=== PATIENT | female | born 1965 | race Caucasian/White ===

== ENCOUNTER 2019-08-13 10:00 | Emergency (ER) | payer OTHER, SELFPAY ==
--- NOTE | 2019-08-13 10:12 | ED.URI ---
HPI - URI/Sore Throat General Chief Complaint: Upper Respiratory Infection Stated Complaint: sore throat Time Seen by Provider: 08/13/19 10:15 Source: patient and RN notes reviewed Mode of arrival: ambulatory Limitations: no limitations History of Present Illness HPI Narrative: 53-year-old female presents with concern for sore throat that started today. Reports on Saturday she began having runny nose. Reports yesterday she had slight cough, right ear pain and continued to have nasal drainage. She denies fever, body aches, chills, sweats, headache, nausea, vomiting, diarrhea. Reports mild nasal congestion. Denies taking any medications for her symptoms MD elicited complaint: sore throat Related Data Allergies Allergy/AdvReac Type Severity Reaction Status Date / Time Sulfa (Sulfonamide AdvReac Unknown GETS YEAST Unverified 12/28/14 08:19 Antibiotics) INFECTION Review of Systems Review of Systems: Narrative: CONSTITUTIONAL: Denies malaise, chills, sweats, or fever. EYES: Denies visual changes, redness, or discharge. ENT: Reports rhinorrhea, congestion, sore throat, ear pain CARDIOVASCULAR: Denies chest pain, palpitations, or edema. RESPIRATORY: Reports occasional cough. Denies dyspnea. GASTROINTESTINAL: Denies abdominal pain, nausea, vomiting, diarrhea SKIN: Denies rash or itching. MUSCULOSKELETAL: Denies myalgia. NEUROLOGIC: Denies headache. All systems reviewed & are unremarkable except as noted in HPI and below PMFSH Comments At time of signature, agree with nursing past medical, surgical, social and family history. There is no relevant family history pertinent to the presenting complaint Exam Narrative: Exam Narrative: GENERAL: Well-appearing, well-nourished, and in no acute distress. HEAD: Normocephalic EYES: PERRLA, conjunctivae clear ENT: Nares clear, turbinates erythematous, clear discharge. Mucous membranes moist. TM pearly henao with dull light reflex bilaterally; no tragal tenderness. Oropharynx mild erythematous without lesions. Tonsils not enlarged and without exudate, no drooling, no hoarseness, no trismus, uvula midline. NECK: Supple. No lymphadenopathy CHEST: Clear to auscultation, breath sounds equal. No wheezing, rhonchi, rales, or stridor. No respiratory distress, speaks in full sentences. HEART: Regular rate and rhythm. No murmur heard. SKIN: Warm, dry, no rash. NEURO: Alert and oriented x3. PSYCH: Normal mood and affect Course Course Emergency Course: Patient is aware of diagnosis, understands and agrees to treatment plan. Anticipatory guidance given. Patient agrees to follow-up as directed and is aware of reasons to seek care at the emergency department. Portions of this record may have been created with voice recognition software Vital Signs Vital signs: Vital Signs Temperature 99.1 F 08/13/19 10:13 Pulse Rate 82 08/13/19 10:13 Blood Pressure 134/80 08/13/19 10:13 Pulse Oximetry 100 08/13/19 10:13 Temperature 99.1 F 08/13/19 10:13 Pulse Rate 82 08/13/19 10:13 Blood Pressure 134/80 08/13/19 10:13 Pulse Oximetry 100 08/13/19 10:13 Reviewed. Patient has been instructed to follow up with her primary care provider within the next week regarding her elevated blood pressure today. MDM - URI/Sore Throat MDM Narrative Medical decision making narrative: Differential diagnosis considered: Strep pharyngitis, allergic rhinitis, upper respiratory tract infection, sinusitis, rhinosinusitis, nasopharyngitis. viral pharyngitis, otitis media, otitis externa, pneumonia, bronchitis, viral cough syndrome, viral syndrome, and influenza. Exam findings show no acute concerns or changes; patient is non-toxic appearing and is in no distress. Patient is appropriate for outpatient treatment and follow-up. Lab Data Labs: Strep Screen Presumptive Negative *(Reference Range: Negative)* Critical Care Time Critical Care Time Critical Care Time: No Discharge Greg
[2019-08-13 10:13] VITALS: BP 134/80; PULSE 82; RESP 16; TEMP 37.3; O2SAT 100
== END 2019-08-13 10:38 | disposition home or self-care (01) ==
PROVIDERS: Emergency Provider Nurse Practitioner
DX: J06.9 Acute upper respiratory infection, unspecified (principal)
CPT/HCPCS: 87081; 87880; 99213; G0463

== ENCOUNTER 2020-07-24 11:32 | Emergency (ER) | payer OTHER, SELFPAY ==
[2020-07-24 11:50] VITALS: BP 110/80; PULSE 80; RESP 18; TEMP 37.1; O2SAT 97
--- NOTE | 2020-07-24 12:11 | ED.URI ---
HPI - URI/Sore Throat General Chief Complaint: Upper Respiratory Infection Stated Complaint: Sore Throat/Drainage Time Seen by Provider: 07/24/20 12:11 Source: patient Mode of arrival: ambulatory Limitations: no limitations History of Present Illness HPI Narrative: Tessa Kennedy is a 54 yo female with no PMH who comes [facility] with sore throat, pressure in her sinus maxillary sinus, the 2-3 over 10; has sore throat on 07 July and when he got tested which was negative but her class in school was totally quarantine until the she stated she was feeling well during that quarantine time has been back to school for 2 days and now has this sore throat again. Vaccination scheduled for today which now has been moved further out Related Data Allergies Allergy/AdvReac Type Severity Reaction Status Date / Time Sulfa (Sulfonamide AdvReac Unknown GETS YEAST Verified 07/24/20 11:59 Antibiotics) INFECTION Review of Systems Review of Systems: Narrative: CONSTITUTIONAL: Denies fever, chills, sweats. EYES: Denies visual changes, redness, discharge. ENT: has rhinorrhea,has congestion, has sore throat, otalgia. Sinus pressure CARDIOVASCULAR: Denies chest pain, palpitations, edema. RESPIRATORY: Denies dyspnea, wheezing, cough GASTROINTESTINAL: Denies abdominal pain, nausea, vomiting, diarrhea. GENITOURINARY: Denies dysuria, hematuria, abnormal discharge SKIN: Denies rash or itching. NEUROLOGIC: Denies numbness, or focal weakness. PSYCHIATRIC: Denies anxiety or depression. PMFSH Past Medical History Medical History (Updated 07/24/20 @ 12:20 by Adeola Yousif CNP) No acute medical problems Family History Family History (Updated 07/24/20 @ 12:16 by Adeola Yousif CNP) Father Hypertension Mother Diabetes mellitus Social History Social History (Updated 07/24/20 @ 12:16 by Adeola Yousif CNP) Smoking status: Never smoker Alcohol intake: current Comments At time of signature, I agree with nursing past medical, surgical, social and family history. There is no relevant family history pertinent to the presenting complaint. Exam Narrative: Exam Narrative: GENERAL: This is a well-nourished, well-developed patient, in mild distress. HEAD: normocephalic, atraumatic. EYES: Sclera clear/white. Vision is grossly intact. EARS: External ears normal Hearing grossly intact. NOSE: External nose normal with nasal discharge, nares without redness, n mild rhinorrhea. THROAT: Mucous membranes moist, posterior pharynx erythema with no exudate NECK: Neck supple, non-tender CARDIOVASCULAR: Regular rate and rhythm without murmurs, gallops, or rubs. RESPIRATORY: Clear to auscultation. Breath sounds equal bilaterally. No wheezes, rales, or rhonchi. GASTROINTESTINAL: Abdomen soft, SKIN: warm, intact with no suspicious lesions or rash, good texture and turgor. NEURO: awake, alert, and oriented to person, place and time. There were no obvious focal neurologic abnormalities. Steady gait EXTREMITIES: Normal range of motion. BACK: Nontender without deformity Course Course Emergency Course: Patient here for upper respiratory symptoms including sore throat and rhinorrhea no cough started again yesterday Strep test negative Covid PCR sent Patient is quarantine until results from PCR obtained she has canceled her Covid vaccine for today Vital Signs Vital signs: Vital Signs Temperature 98.8 F 07/24/20 11:50 Pulse Rate 80 07/24/20 11:50 Respiratory Rate 18 07/24/20 11:50 Blood Pressure 110/80 07/24/20 11:50 Pulse Oximetry 97 07/24/20 11:50 Temperature 98.8 F 07/24/20 11:50 Pulse Rate 80 07/24/20 11:50 Respiratory Rate 18 07/24/20 11:50 Blood Pressure 110/80 07/24/20 11:50 Pulse Oximetry 97 07/24/20 11:50 MDM - URI/Sore Throat Differential Diagnosis Differential diagnosis: Likely upper respiratory infection, viral infection, pharyngitis and other Lab Data Labs: Stre
[2020-07-25 18:21] LABS: SARS-CoV-2 RNA PCR Negative
== END 2020-07-24 12:25 | disposition home or self-care (01) ==
PROVIDERS: Emergency Provider Nurse Practitioner
DX: J06.9 Acute upper respiratory infection, unspecified (principal); Z20.822 Contact with and (suspected) exposure to COVID-19
CPT/HCPCS: 87081; 87880; 99213; C9803; G0463; U0003; U0005

== ENCOUNTER 2020-11-05 08:05 | Emergency (ER) | payer OTHER, SELFPAY ==
--- NOTE | 2020-11-05 08:15 | ED.URI ---
HPI - URI/Sore Throat General Chief Complaint: Upper Respiratory Infection Stated Complaint: headache,sore throat Time Seen by Provider: 11/05/20 08:55 Source: patient, RN notes reviewed and old records reviewed Mode of arrival: ambulatory Limitations: no limitations History of Present Illness HPI Narrative: 54-year-old female who presents to [facility] with complaints of headache since Saturday across her brow with sore throat starting yesterday. She states that she also has some pressure to her right side of her face today. Patient states she is scheduled for Covid test in [place] later today. Patient states that she has not taken any OTC medication for her symptoms denies any known fever, chills, or sweats. MD elicited complaint: sore throat and other (Headache, right sinus pressure) Pertinent past history: seasonal allergies and other (previous tonsillectomy) Onset (ago): day(s) (4 days) Consistency: progressively worsening Severity: moderate Pain scale (0-10): 5 Description of mucous: clear Able to tolerate fluids by mouth: Yes Exacerbating factors: swallowing Relieving factors: nothing Associated symptoms: headache and sore throat Treatments prior to arrival: acetaminophen Related Data Allergies Allergy/AdvReac Type Severity Reaction Status Date / Time Sulfa (Sulfonamide AdvReac Unknown GETS YEAST Verified 07/24/20 11:59 Antibiotics) INFECTION Review of Systems Review of Systems: Narrative: CONSTITUTIONAL: Denies fever, chills, or sweats. EYES: Denies visual changes, redness, or discharge. ENT: Clear rhinorrhea,no congestion, positive sore throat, no otalgia. CARDIOVASCULAR: Denies chest pain, palpitations, or edema. RESPIRATORY: Denies cough or dyspnea. GASTROINTESTINAL: Denies abdominal pain, nausea, vomiting, or diarrhea. GENITOURINARY: Denies dysuria or hematuria. SKIN: Denies rash or itching. MUSCULOSKELETAL: Denies back pain, joint pain, or myalgia. NEUROLOGIC: Positive headache,no numbness, or weakness. PSYCHIATRIC: Denies anxiety or depression. All systems reviewed & are unremarkable except as noted in HPI and below PMFSH Past Medical History Medical History (Updated 11/05/20 @ 09:51 by Sheila Bartlett NP) Overactive bladder Surgical History Surgical History (Updated 11/05/20 @ 09:50 by Sheila Bartlett NP) History of ankle surgery Hx of tonsillectomy S/P removal of right ovary Family History Family History Father Hypertension Mother Diabetes mellitus Social History Social History (Updated 11/05/20 @ 09:47 by Sheila Bartlett NP) Smoking status: Never smoker Alcohol intake: current Alcohol use details: social Substance use: never Living arrangements: with family Gender identity (if verbalized by the patient): Female Comments At time of signature, agree with nursing past medical, surgical, social and family history. There is no relevant family history pertinent to the presenting complaint Exam Narrative: Exam Narrative: GENERAL: Well-appearing, well-nourished, and in no acute distress. HEAD: Normocephalic, atraumatic. EYES: PERRLA and EOMI. ENT: Nares red, clear nasal rhinorrhea no epistaxis. Mucous membranes moist. TM's normal with good light reflex, throat red with no lesions or exudates, no tonsils present, verbalizes sore throat increases with swallowing. NECK: Supple.no lymphadenopathy CHEST: Clear to auscultation. No respiratory distress. SAO2 100% on room air HEART: Regular rate and rhythm. No murmur heard. Normal peripheral pulses. ABDOMEN: Soft, nontender, nondistended, normal active bowel sounds. EXTREMITIES: Normal range of motion. No edema. SKIN: Warm, dry, no rash. NEURO: No focal deficits. Alert and oriented x3. Course Vital Signs Vital signs: Vital Signs Temperature 37.1 C 11/05/20 08:16 Pulse Rate 88 11/05/20 08:16 Respiratory Rate 16 11/05/20 08:16 Blood Pressur
[2020-11-05 08:16] VITALS: BP 140/82; PULSE 88; RESP 16; TEMP 37.1; O2SAT 100
== END 2020-11-05 09:14 | disposition home or self-care (01) ==
PROVIDERS: Emergency Provider Registered Nurse
DX: J02.0 Streptococcal pharyngitis (principal); J30.2 Other seasonal allergic rhinitis
CPT/HCPCS: 87880; 99213; G0463

== ENCOUNTER 2022-01-18 17:09 | Emergency (ER) | payer OTHER, SELFPAY ==
--- NOTE | 2022-01-18 17:13 | ED.URI ---
HPI - URI/Sore Throat General Chief Complaint: Upper Respiratory Infection Stated Complaint: sore throat,stuffy nose Time Seen by Provider: 01/18/22 17:22 Source: patient, RN notes reviewed and old records reviewed Mode of arrival: ambulatory Limitations: no limitations History of Present Illness HPI Narrative: 56-year-old female presents to the [facility] with complaints of sore throat and stuffy nose since midnight. Has taken Tylenol for pain, 1 dose. No other tx [employer]. Denies fevers, chest pain, shortness of breath, cough or abdominal pain. Home covid test was negitive this morning. MD elicited complaint: sore throat, rhinorrhea and nasal congestion Related Data Allergies Allergy/AdvReac Type Severity Reaction Status Date / Time Sulfa (Sulfonamide AdvReac Unknown GETS YEAST Verified 01/18/22 17:15 Antibiotics) INFECTION Review of Systems Review of Systems: All systems reviewed & are unremarkable except as noted in HPI and below Constitutional: Constitutional: Reports no additional constitutional complaints, Denies chills and Denies fever(s) Eyes: Eyes: Reports no additional eye complaints ENT: Reports as per HPI, Reports nasal congestion and Reports sore throat Cardiovascular: Cardiovascular: Reports no additional cardiovascular complaints Respiratory: Respiratory: Reports no additional respiratory complaints Gastrointestinal: Gastrointestinal: Reports no additional gastrointestinal complaints Musculoskeletal: Musculoskeletal: Reports no additional musculoskeletal complaints Integumentary/Breasts: Skin/Breast: Reports system reviewed and no additional complaints, except as docu Neurologic: Reports system reviewed and no additional complaints, except as documented Psychiatric: Psychiatric: Reports no additional psychiatric complaints Allergic/Immunologic: Allergic/Immunologic: Reports no additional allergic/immunologic complaints [facility] Past Medical History Medical History Overactive bladder Surgical History Surgical History History of ankle surgery Hx of tonsillectomy S/P removal of right ovary Family History Family History Father Hypertension Mother Diabetes mellitus Social History Social History Smoking status: Never smoker Alcohol intake: current Alcohol use details: social Substance use: never Gender identity (if verbalized by the patient): Female Comments At the time of my signature, I reviewed and agree with the nursing past medical, surgical, social, and family history. There is no relevant family history pertinent to the patient complaint. Exam Const: General: healthy appearing, no acute distress and alert Nutritional Appearance: well nourished Orientation/consciousness: patient oriented x3 Limitations: no limitations HENMT: Head: normal to inspection Ears: external ears normal, TM's normal bilaterally and EAC's normal General nose exam: Normal external nose present and Normal nares present Face and sinus: normal facial exam Mouth: Yes Normal oral and palatal mucosa present, Yes lip normal and Yes moist mucous membranes Throat: posterior oropharynx normal, uvula midline, tonsils absent and no uvular edema Eyes: General: appearance normal, both eyes and all related structures Pupils: Equal, round and reactive pupils present Neck: Neck: normal visual inspection, no lymphadenopathy and no meningeal signs Chest: Chest palpation & inspection: normal inspection of the chest Resp: Effort & Inspection: normal respiratory effort and no use of accessory muscles Auscultation: clear to auscultation bilaterally, no crackles, no rales, no rhonchi and no wheezes Cardio: Rate: regular rate Rhythm: regular rhythm Back/Spine/Pelvis: Cervical Spine: normal
[2022-01-18 17:17] VITALS: BP 133/90; PULSE 98; RESP 16; TEMP 37.1; O2SAT 100
== END 2022-01-18 17:38 | disposition home or self-care (01) ==
PROVIDERS: Emergency Provider Nurse Practitioner
DX: J06.9 Acute upper respiratory infection, unspecified (principal)
CPT/HCPCS: 87081; 87880; 99213; G0463

== ENCOUNTER 2022-12-01 08:31 | Outpatient (CLI) | payer OTHER, SELFPAY ==
--- NOTE | ~2022-12-01 | MM_ITS ---
EXAMINATION: MM screening [facility] BI w [facility]sario HISTORY: Screening mammogram TECHNIQUE: Craniocaudal and mediolateral oblique 3-D tomosynthesis images were obtained and synthetic 2-D images were generated. CAD analysis was submitted and interpreted. COMPARISON: 12/05/2018, 11/15/2017, 10/23/2016 BREAST PARENCHYMAL COMPOSITION:There are scattered areas of fibroglandular density. FINDINGS: No suspicious mass, calcification, or architectural distortion are identified in either flavia ast to suggest malignancy. There has been no suspicious interval change. IMPRESSION: No mammographic evidence of malignancy. Recommend routine screening mammography in one year. BI-RADS Category 1: Negative Reviewed, dictated and finalized at location M.
== END 2022-12-01 08:32 | disposition home or self-care (01) ==
LOC: ANHIMG 08:36
PROVIDERS: PCP Nurse Practitioner; Visit Provider Nurse Practitioner
DX: Z12.31 Encounter for screening mammogram for malignant neoplasm of breast (principal)
CPT/HCPCS: 77063; 77067

== ENCOUNTER 2024-07-06 16:11 | Emergency (ER) | payer OTHER, SELFPAY ==
[2024-07-06 16:57] VITALS: BP 132/82; PULSE 88; RESP 16; TEMP 36.6; O2SAT 99
--- NOTE | 2024-07-06 18:00 | ED_ITS ---
HPI - Ear Problem General Chief complaint: Ear Stated complaint: Ear Pain Time Seen by Provider: 07/06/24 18:00 Source: patient, RN notes reviewed and old records reviewed Mode of arrival: ambulatory Limitations: no limitations History of Present Illness HPI Narrative: 58 year old female who presents to [facility] with complaints of right ear pain and muffled hearing starting today. Patient reports that she had Influenza last week and she continues to have some sinus congestion and drainage. Patient reports that when sh blows her nose her left ear will clear but right ear remains clogged. Patient denies any present fever, sore throat headache or body aches at present MD Complaint: ear pain and other (muffled hearing right ear) Location: right ear Duration: constant Discharge from ear: Reports no Related Data Allergies Allergy/AdvReac Type Severity Reaction Status Date / Time Sulfa (Sulfonamide AdvReac Unknown GETS YEAST Verified 07/06/24 17:01 Antibiotics) INFECTION Review of Systems Review of Systems: CONSTITUTIONAL: Denies malaise, chills, sweats, or fever. EYES: Denies visual changes, redness, or discharge. ENT: Reports rhinorrhea, congestion, sinus pain,positive for right otalgia and no sore throat. CARDIOVASCULAR: Denies chest pain, palpitations, or edema. RESPIRATORY: Reports no cough.? Denies dyspnea. GASTROINTESTINAL: Denies abdominal pain, nausea, vomiting, diarrhea SKIN: Denies rash or itching. MUSCULOSKELETAL: Denies myalgia. NEUROLOGIC: Denies headache. All systems reviewed & are unremarkable except as noted in HPI and below PMFSH Past Medical History Medical History Overactive bladder Surgical History Surgical History History of ankle surgery S/P removal of right ovary Hx of tonsillectomy Family History Family History Father Hypertension Mother Diabetes mellitus Social History Social History Smoking status: Never smoker Alcohol intake: current Alcohol use details: social Substance use: never Living arrangements: with family Gender identity (if verbalized by the patient): Female Comments At time of signature, agree with nursing past medical, surgical, social and family history. There is no relevant family history pertinent to the presenting complaint Exam Narrative: GENERAL: Well-appearing, well-nourished, and in no acute distress. HEAD: Normocephalic EYES: PERRLA, conjunctivae clear ENT: Nares clear, turbinates edematous and erythematous, clear discharge. Mucous membranes moist. TM pearly henao with dull light reflex bilaterally; no tragal tenderness. Oropharynx erythematous without lesions. Tonsils not present and throat without exudate, no drooling, no hoarseness, no trismus, uvula midline.Clear nasal drainage NECK: Supple. No lymphadenopathy CHEST: Clear to auscultation, breath sounds equal. No wheezing, rhonchi, rales, or stridor. No respiratory distress, speaks in full sentences.no cough notedSAO2 99% on room air HEART: Regular rate and rhythm. No murmur heard. SKIN: Warm, dry, no rash. NEURO: Alert and oriented x3. PSYCH: Normal mood and affect Course Course Emergency Course: Patient is aware of diagnosis, understands and agrees to treatment plan.? Anticipatory guidance given.? Patient agrees to follow-up as directed and is aware of reasons to seek care at the emergency department. Portions of this record may have been created with voice recognition software Level of Care: Express Care Visit Vital Signs Vital signs: Vital Signs Temperature 36.6 C 07/06/24 16:57 Pulse Rate 88 07/06/24 16:57 Respiratory Rate 16 07/06/24 16:57 Blood Pressure 132/82 07/06/24 16:57 Pulse Oximetry 99 07/06/24 16:57 Oxygen Delivery Room Air 07/06/24 16:57 Temperature 36.6 C 07/06/24 16:57 Pulse Rate 88 07/06/24 16:57 Respiratory Rate 16 07/06/24 16:57 Blood Pressure 132/82 07/06/24 16:57 Pulse Oximetry 99 07/06/24 16:57 Oxygen Delivery Room Air 07/06/24 16:57 Reviewed Medical Decision Making Differential Diagnosis Differential Diagnosis: URI, sinus congestion otitis media, influenza viral infection Medical Records Medical records reviewed: Yes I reviewed the external patient's medical records. Vital Signs Vital Signs: Vital Signs Temperature 36.6 C 07/06/24 16:57 Pulse Rate 88 07/06/24 16:57 Respiratory Rate 16 07/06/24 16:57 Blood Pressure 132/82 07/06/24 16:57 Pulse Oximetry 99 07/06/24 16:57 Oxygen Delivery Room Air 07/06/24 16:57 Temperature 36.6 C 07/06/24 16:57 Pulse Rate 88 07/06/24 16:57 Respiratory Rate 16 07/06/24 16:57 Blood Pressure 132/82 07/06/24 16:57 Pulse Oximetry 99 07/06/24 16:57 Oxygen Delivery Room Air 07/06/24 16:57 Critical Care Time Critical Care Time Critical Care Time: No Discharge Plan Discharge Clinical Impression: Otitis media Qualifiers: Otitis media type: serous Chronicity: acute Laterality: right Recurrence: non- recurrent Qualified Code(s): H65.01 - Acute serous otitis media, right ear Patient Disposition: Home, Self-Care Condition: Stable Instructions: Antibiotic Form, Ear Infection (GEN) Additional Instructions: Increase fluids especially juices and water [id number] cough and cold medicine of your choice for your symptoms Prescription cough medicine as directed--caution drowsiness and no driving or alcohol Zyrtec Claritin or Lyssa daily may include plain Sudafed once in a.m. heat to the face 20-30 minutes 4-6 times a day for pain Salt water gargles, throat lozenges or throat sprays as desired Antibiotic as directed--finished the medication If your symptoms persist, change or worsen significantly before you can contact your personal physician then please, without delay, go to the emergency department for further evaluation. Follow-up with PCP in 7-10 days or sooner if needed Follow up with PCP soon in regards to your blood pressure which is elevated above threshold for referral. Blood pressure above 120/80 may indicate pre- hypertension. 132/82 Patient Language: Lao Prescriptions: New amoxicillin 875 mg tablet 875 mg PO Q12H Qty: 20 0RF Rx Instructions: take all doses of oral antibiotics Follow-up/Referrals: Kenneth,MELANIE Farooq [Primary Care Provider] - Time of Disposition: 18:14 Quality [place] Coma Scale Eyes: Open Verbal: Oriented and Alert Motor: Follows Commands Danial Coma Total Score: 15
== END 2024-07-06 18:15 | disposition home or self-care (01) ==
PROVIDERS: Emergency Provider Registered Nurse; PCP Nurse Practitioner
DX: H65.01 Acute serous otitis media, right ear (principal)
CPT/HCPCS: 99213; G0463

== ENCOUNTER 2024-09-14 12:48 | Emergency (ER) | payer OTHER, SELFPAY ==
--- NOTE | ~2024-09-14 | CT_ITS ---
EXAMINATION: CTA chest PE protocol DATE: 09/14/2024 16:48 INDICATION: chest pain, elevated d dimer TECHNIQUE: Computed tomography angiography (CTA) of the chest was performed with 100 mL Omnipaque-350 intravenous contrast timed to evaluate the pulmonary arteries. Coronal maximum intensity projection 3D-reconstructions were created by the technologist. The dose-length product (DLP) was 240.52 mGy-cm. Automated exposure control and iterative reconstruction technique were employed. COMPARISON: X-ray chest, same date. FINDINGS: Lung parenchyma and airways: Linear scar/atelectasis in the bilateral lower lobes. Mild dependent sca r/atelectasis. Granulomas calcifications. Patent airways. Pleura: Unremarkable. Thoracic inlet, axillae and chest wall: Unremarkable. Thoracic aorta: No significant dilation. No dissection. Mediastinum: Normal. Heart and pericardium: Normal. Coronary artery calcifications: Absent. Upper abdomen: No significant finding. Bones: No acute osseous finding. Pulmonary arteries: Study quality: Adequate. No pulmonary emboli detected. IMPRESSION: No CT evidence of acute pulmonary embolus. No acute process detected in the chest. Reviewed, dictated and finalized at location K.
--- NOTE | ~2024-09-14 | XR_ITS ---
XR chest 2V Ordering provider: Selam Sethi MD History: 58 years Female with . CP X YESTERDAY . Comparison: None. FINDINGS: MEDIASTINUM: The cardiac silhouette is not enlarged. LUNGS: No infiltrates, effusions or pneumothorax. Likely bronchovascular markings in the left lung ba se. OTHER: No free air under the diaphragm. Degenerative changes of the spine IMPRESSION: No definite acute cardiopulmonary pathology. Reviewed, dictated and finalized at location A.
--- NOTE | 2024-09-14 12:50 | ECG_ITS ---
Test Date: 2024-09-14 12:59:32 Measurements Intervals [place] Rate: 78 P: 62 KS: 144 QRS: 70 QRSD: 81 T: 49 QT: 339 QTc: 386 Interpretive Statements SINUS RHYTHM BASELINE ARTIFACT- I, II, III, AVR, AVL, AVF, V1-V6 NORMAL ECG No previous ECG available for comparison Electronically Signed On 09-14-2024 13:37:20 CDT by Dustin Quintana D.O.
[2024-09-14 12:59] VITALS: BP 152/87; PULSE 84; RESP 16; TEMP 36.7; O2SAT 100
--- NOTE | 2024-09-14 13:05 | ED_ITS ---
HPI - Chest Pain General Chief Complaint: Chest Pain <Apolonia Jones INSTALLATION TECH - Last Filed: 09/14/24 13:07> Stated Complaint: Left chest heaviness since yesterday <Apolonia Jones APRN - Last Filed: 09/14/24 13:07> Time Seen by Provider: 09/14/24 13:00 <Apolonia Jones INSTALLATION TECH - Last Filed: 09/14/24 13:07> Focused HPI: Patient is a 58-year-old female who presents to the intermittent chest pain that started yesterday. She reports her chest feels heavy and she has pressure. Patient denies any palpitations. She reports she has had intermittent shortness of breath. Patient reports her father of a heart attack at age 58 and so she is very nervous right now. She reports when she 1st noticed chest pain yesterday was when she was driving. Patient endorses heavy ice tea consumption. She denies any recent fevers, back pain, abdominal pain, urinary symptoms. GENERAL: Well-appearing, well-nourished, and in no acute distress. HEAD: Normocephalic, atraumatic. CHEST: Clear to auscultation. ?No respiratory distress. HEART: Regular rate and rhythm.? NEURO: ?Alert and oriented x3. Patient screened in triage and initial orders placed.? ?Additional care and disposition to be based upon?diagnostic testing and treatment. <Apolonia Jones, INSTALLATION TECH - Last Filed: 09/14/24 13:07> Related Data Allergies/Adverse Reactions: Allergies Allergy/AdvReac Type Severity Reaction Status Date / Time Sulfa (Sulfonamide AdvReac Unknown GETS YEAST Verified 09/14/24 12:49 Antibiotics) INFECTION <Apolonia Jones, INSTALLATION TECH - Last Filed: 09/14/24 13:07> PMFSH Past Medical History Medical History: Medical History Overactive bladder <Apolonia Jones INSTALLATION TECH - Last Filed: 09/14/24 13:07> Surgical History Surgical History: Surgical History History of ankle surgery S/P removal of right ovary Hx of tonsillectomy <Apolonia Jones, INSTALLATION TECH - Last Filed: 09/14/24 13:07> Family History Family History: Family History Father Hypertension Mother Diabetes mellitus <Apolonia Jones INSTALLATION TECH - Last Filed: 09/14/24 13:07> Social History Social History: Social History Smoking status: Never smoker Alcohol intake: current Alcohol use details: social Substance use: never Living arrangements: with family Gender identity (if verbalized by the patient): Female <Apolonia Jones APRN - Last Filed: 09/14/24 13:07> Course Reevaluation(s) Reevaluation #1: I spoke with patient about her chest pain. It is atypical and she is low heart score. She understands that this will rule out IA but she will still need to follow up with PCP for evaluation rule out her concern for heart disease. She is comfortable with discharge and she was given return precautions. Low risk for aortic dissection. CT did not show any significant finding. <Selam Sethi MD - Last Filed: 09/14/24 18:36> Date: 09/14/24 <Selam Sethi MD - Last Filed: 09/14/24 18:36> Time: 17:09 <Selam Sethi MD - Last Filed: 09/14/24 18:36> Vital Signs Vital signs: Vital Signs Temperature 98.1 F 09/14/24 12:59 Pulse Rate 84 09/14/24 12:59 Respiratory Rate 16 09/14/24 12:59 Blood Pressure 152/87 H 09/14/24 12:59 Pulse Oximetry 100 09/14/24 12:59 Oxygen Delivery Room Air 09/14/24 12:59 Temperature 98.1 F 09/14/24 12:59 Pulse Rate 79 09/14/24 16:10 Respiratory Rate 15 09/14/24 16:10 Blood Pressure 113/83 09/14/24 16:10 Pulse Oximetry 95 09/14/24 16:10 Oxygen Delivery Room Air 09/14/24 12:59 <Apolonia Jones APRN - Last Filed: 09/14/24 13:07> Vital Signs Temperature 98.1 F 09/14/24 12:59 Pulse Rate 84 09/14/24 12:59 Respiratory Rate 16 09/14/24 12:59 Blood Pressure 152/87 H 09/14/24 12:59 Pulse Oximetry 100 09/14/24 12:59 Oxygen Delivery Room Air 09/14/24 12:59 Temperature 98.1 F 09/14/24 12:59 Pulse Rate 79 09/14/24 16:10 Respiratory Rate 15 09/14/24 16:10 Blood Pressure 113/83 09/14/24 16:10 Pulse Oximetry 95 09/14/24 16:10 Oxygen Delivery Room Air 09/14/24 12:59 <Selam Sethi MD - Last Filed: 09/14/24 18:36> MDM - Chest Pain Differential Diagnosis Differential diagnosis: Likely fracture of rib, pneumothorax, atypical chest pain, costochondritis, chest pain and other (PE, pneumonia) <Selam Sethi MD - Last Filed: 09/14/24 18:36> Medical Records Data Attestation: I reviewed the patient's medical records. <Selam Sethi MD - Last Filed: 09/14/24 18:36> Lab Data Attestation: I reviewed the patient's lab results. <Selam Sethi MD - Last Filed: 09/14/24 18:36> Result diagrams: 09/14/24 13:26 09/14/24 13:26 <Apolonia Jones APRN - Last Filed: 09/14/24 13:07> Labs: Lab Results 09/14/24 09/14/24 09/14/24 Range/Units 13:26 13:26 16:27 WBC 7.2 (4.5-10.0) K/mm3 RBC 4.08 L (4.2-5.4) M/mm3 Hgb 12.8 (12.0-15.0) g/dL Hct 39.9 (37.0-47.0) % MCV 97.8 (80-100) fl MCH 31.4 (26-34) pg MCHC 32.1 (32-36) g/dl RDW 13.7 (11.5-14.5) % Plt Count 247 (150-375) k/mm3 MPV 11.7 H (7.4-10.4) fl Immature Gran % (Auto) 0.3 (0-0.5) % Neut % (Auto) 58.8 (45.5-73.1) % Lymph % (Auto) 30.7 (18.3-44.2) % [place] % (Auto) 8.7 H (2.6-8.5) % Eos % (Auto) 1.1 (0-4.4) % Baso % (Auto) 0.4 (0.2-1.2) % Lymph # (Auto) 2.21 (0.9-3.2) K/mm3 [place] # (Auto) 0.6 (0.1-0.6) K/mm3 Eos # (Auto) 0.1 (0-0.3) K/mm3 Baso # (Auto) 0.0 (0.0-0.1) K/mm3 Abs Immat Gran (auto) 0.02 (0.00-0.031) K/mm3 Absolute Neuts (auto) 4.2 (1.3-6.7) K/mm3 Absolute Nucleated RBC 0.000 (0.0-0.012) K/mm3 Nucleated RBC % 0.0 (0.0-0.2) % PT 12.8 (11.1-14.7) Seconds INR 0.9 APTT 25.6 (22.3-36.8) Seconds D-Dimer 0.50 H Cancelled (<0.48) ug/mL Sodium 139 (137-145) mmol/L Potassium 4.1 (3.4-5.0) mmol/L Chloride 103 (98-107) mmol/L Carbon Dioxide 26 (22-30) mmol/L Anion Gap 10 (4-12) mmol/L BUN 19 H (7-17) mg/dL Creatinine 0.86 (0.7-1.0) mg/dL Estim Creat Clear Calc 60 ml/min Estimated GFR > 60 (59 - ) Glucose 92 (65-110) mg/dL Calcium 9.6 (8.4-10.2) mg/dL Total Bilirubin 0.4 (0.2-1.3) mg/dL AST 28 (14-36) U/L ALT 25 (6-35) U/L Alkaline Phosphatase 81 (38-126) U/L Troponin I < 0.012 < 0.012 (0.000-0.034) ng/mL Total Protein 8.0 (6.3-8.2) g/dL Albumin 4.7 (3.5-5.1) g/dL Lipase 97 (23-300) U/L TSH (Reflex) 2.300 (0.465-4.68) uIU/mL <Apolonia Jones, INSTALLATION TECH - Last Filed: 09/14/24 13:07> Lab Results 09/14/24 09/14/24 09/14/24 Range/Units 13:26 13:26 16:27 WBC 7.2 (4.5-10.0) K/mm3 RBC 4.08 L (4.2-5.4) M/mm3 Hgb 12.8 (12.0-15.0) g/dL Hct 39.9 (37.0-47.0) % MCV 97.8 (80-100) fl MCH 31.4 (26-34) pg MCHC 32.1 (32-36) g/dl RDW 13.7 (11.5-14.5) % Plt Count 247 (150-375) k/mm3 MPV 11.7 H (7.4-10.4) fl Immature Gran % (Auto) 0.3 (0-0.5) % Neut % (Auto) 58.8 (45.5-73.1) % Lymph % (Auto) 30.7 (18.3-44.2) % [place] % (Auto) 8.7 H (2.6-8.5) % Eos % (Auto) 1.1 (0-4.4) % Baso % (Auto) 0.4 (0.2-1.2) % Lymph # (Auto) 2.21 (0.9-3.2) K/mm3 [place] # (Auto) 0.6 (0.1-0.6) K/mm3 Eos # (Auto) 0.1 (0-0.3) K/mm3 Baso # (Auto) 0.0 (0.0-0.1) K/mm3 Abs Immat Gran (auto) 0.02 (0.00-0.031) K/mm3 Absolute Neuts (auto) 4.2 (1.3-6.7) K/mm3 Absolute Nucleated RBC 0.000 (0.0-0.012) K/mm3 Nucleated RBC % 0.0 (0.0-0.2) % PT 12.8 (11.1-14.7) Seconds INR 0.9 APTT 25.6 (22.3-36.8) Seconds D-Dimer 0.50 H Cancelled (<0.48) ug/mL Sodium 139 (137-145) mmol/L Potassium 4.1 (3.4-5.0) mmol/L Chloride 103 (98-107) mmol/L Carbon Dioxide 26 (22-30) mmol/L Anion Gap 10 (4-12) mmol/L BUN 19 H (7-17) mg/dL Creatinine 0.86 (0.7-1.0) mg/dL Estim Creat Clear Calc 60 ml/min Estimated GFR > 60 (59 - ) Glucose 92 (65-110) mg/dL Calcium 9.6 (8.4-10.2) mg/dL Total Bilirubin 0.4 (0.2-1.3) mg/dL AST 28 (14-36) U/L ALT 25 (6-35) U/L Alkaline Phosphatase 81 (38-126) U/L Troponin I < 0.012 < 0.012 (0.000-0.034) ng/mL Total Protein 8.0 (6.3-8.2) g/dL Albumin 4.7 (3.5-5.1) g/dL Lipase 97 (23-300) U/L TSH (Reflex) 2.300 (0.465-4.68) uIU/mL <Selam Sethi MD - Last Filed: 09/14/24 18:36> Imaging Data Radiologist's impression: ITS Impressions Chest X-Ray 09/14/24 13:46 IMPRESSION: No definite acute cardiopulmonary pathology. Chest CTA 09/14/24 16:53 IMPRESSION: No CT evidence of acute pulmonary embolus. No acute process detected in the chest. <Selam Sethi MD - Last Filed: 09/14/24 18:36> ECG Data EKG #1: Attestation: I personally reviewed and interpreted this ECG as follows: <Selam Sethi MD - Last Filed: 09/14/24 18:36> ECG completion date: 09/14/24 <Selam Sethi MD - Last Filed: 09/14/24 18:36> ECG completion time: 12:59 <Selam Sethi MD - Last Filed: 09/14/24 18:36> EKG Interpretation: normal rate, sinus rhythm, no ST changes and NL axis <Selam Sethi MD - Last Filed: 09/14/24 18:36> Discharge Plan Discharge Clinical Impression: Atypical chest pain <Apolonia Jones APRN - Last Filed: 09/14/24 13:07> Patient Disposition: Home <Apolonia Jones APRN - Last Filed: 09/14/24 13:07> Condition: Stable <Apolonia Jones APRN - Last Filed: 09/14/24 13:07> Instructions: Antibiotic Form, Chest Pain (ED) <Apolonia Jones APRN - Last Filed: 09/14/24 13:07> Additional Instructions: Call your Primary care provider for follow up regardin your ER visit. REturn if you have any worsening symptoms. <Apolonia Jones APRN - Last Filed: 09/14/24 13:07> Patient Language: [place] Citizen <Apolonia Jones APRN - Last Filed: 09/14/24 13:07> Prescriptions: No Action amoxicillin 875 mg tablet 875 mg PO Q12H Qty: 20 0RF Rx Instructions: take all doses of oral antibiotics <Apolonia Jones APRN - Last Filed: 09/14/24 13:07> Follow-up/Referrals: Kenneth,MELANIE Farooq [Primary Care Provider] - <Apolonia Jones APRN - Last Filed: 09/14/24 13:07> Quality HEART score for chest pain patients History: slightly suspicious <Selam Sethi MD - Last Filed: 09/14/24 18:36> ECG: normal <Selam Sethi MD - Last Filed: 09/14/24 18:36> Age: > 45 and < 65 years <Selam Sethi MD - Last Filed: 09/14/24 18:36> Risk factors: 1 or 2 risk factors <Selam Sethi MD - Last Filed: 09/14/24 18:36> Troponin: < or = to 1x normal limit <Selam Sethi MD - Last Filed: 09/14/24 18:36> Heart score: 2 <Selam Sethi MD - Last Filed: 09/14/24 18:36>
[2024-09-14 13:33] LABS: Basophils Percent Auto 0.4 % (0.2-1.2); Eosinophils Absolute Auto 0.1 K/mm3 (0-0.3); Eosinophils Percent Auto 1.1 % (0-4.4); Hematocrit 39.9 % (37.0-47.0); Hemoglobin 12.8 g/dL (12.0-15.0); Immature Granulocyte Absolute 0.02 K/mm3 (0.00-0.031); Immature Granulocyte Percent A 0.3 % (0-0.5); Lymphocytes Absolute Auto 2.21 K/mm3 (0.9-3.2); Lymphocytes Percent Auto 30.7 % (18.3-44.2); Mean Corpuscular HGB Conc 32.1 g/dl (32-36); Mean Corpuscular Hemoglobin 31.4 pg (26-34); Mean Corpuscular Volume 97.8 fl (80-100); Mean Platelet Volume 11.7 fl (7.4-10.4); Monocytes Absolute Auto 0.6 K/mm3 (0.1-0.6); Monocytes Percent Auto 8.7 % (2.6-8.5); Neutrophils Absolute Auto 4.2 K/mm3 (1.3-6.7); Neutrophils Percent Auto 58.8 % (45.5-73.1); Platelet Count Result 247 k/mm3 (150-375); Red Blood Count 4.08 M/mm3 (4.2-5.4); Red Cell Distribution Width 13.7 % (11.5-14.5); White Blood Count 7.2 K/mm3 (4.5-10.0)
[2024-09-14 13:42] LABS: Alanine Aminotransferase 25 U/L (6-35); Albumin Level 4.7 g/dL (3.5-5.1); Alkaline Phosphatase 81 U/L (38-126); Anion Gap 10 mmol/L (4-12); Aspartate Amino Transferase 28 U/L (14-36); Bilirubin,Total 0.4 mg/dL (0.2-1.3); Blood Urea Nitrogen 19 mg/dL (7-17); Calcium 9.6 mg/dL (8.4-10.2); Carbon Dioxide 26 mmol/L (22-30); Chloride 103 mmol/L (98-107); Estimated CRCL calculation 60 ml/min; Estimated Glomerular Filt Rate > 60; Glucose 92 mg/dL (65-110); Lipase 97 U/L (23-300); Potassium 4.1 mmol/L (3.4-5.0); Sodium 139 mmol/L (137-145)
[2024-09-14 13:46] LABS: INR 0.9; Partial Thromboplastin Time 25.6 Seconds (22.3-36.8); Prothrombin Time 12.8 Seconds (11.1-14.7)
[2024-09-14 14:04] LABS: Troponin I < 0.012 ng/mL (0.000-0.034)
--- OUTSIDE RECORDS SUMMARY | 2024-09-14 14:11 | XMS_ITS | Clinical Summary ---
Author Organization [facility] Address [address] [place] [id number] Care Team Providers Care Aircraft Inspector Name Role Phone Unknown, Notinfile Primary Care Provider Unavail able Allergies No known active allergies Medications acetaminophen (TYLENOL) 500 mg tablet Take 500 mg by mouth every 6 (six) hours as needed for pain Active Active Problems Problem Noted Date Diagnosed Date Closed fracture of right distal radius 9 Overview (11/06/2018): Added automatically from request for surgery [id number] Surgical History Surgery Date Site/Laterality Comments ANKLE FRACTURE SURGERY TONSILLECTOMY CYSTECTOMY DIAGNOSTIC LAPAROSCOPY x 2 OOPHORECTOMY Right Medical History Medical History Date Comments Known health problems: none PONV (postoperative nausea and vomiting) Family History Medical History Relation Name Comments Arthritis Other Diabetes Other Heart disease Other Hypertension Other Relation Name Status Comments Other Social History Tobacco Use Types Packs/Day Years Used Date Smoking Tobacco: Never Smokeless Tobacco: Never Alcohol Use Standard Drinks/Week Comments Never 0 (1 standard drink = 0.6 oz pur e alcohol) AUDIT-C Answer Date Recorded Frequency of Alcohol Consumption Never 11/06/2018 Average Number of Drinks Not on file 019 Frequency of Binge Drinking Not on file 10/25 Comments No Sex and Gender Information Value Date Recorded Sex Assigned at Not on file 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 Gender Identity Not on file Sexual Orientation Not on file Obstetrics History Last Filed Vital Signs Vital Sign Reading Time Taken Comments Blood Pressure 133/81 03/13/2019 9:02 AM CDT Pulse 88 03/13/2019 9:02 AM CDT Temperature 33.9 C (93.1 F) 11/06/2018 3:22 PM CDT Respiratory Rate 16 11/06/2018 3:22 PM CDT Oxygen Saturation 96% 11/06/2018 3:22 PM CDT Inhaled Oxygen Concentration - - Weight 66.2 kg (146 lb) 03/13/2019 9:02 AM CDT Height 198.1 cm (6' 6 ) 03/13/2019 9:02 AM CDT Body Mass Index 16.87 03/13/2019 9:02 AM CDT Plan of Treatment Not on file Insurance [facility] HMO/PPO Address: [place] [address] Care Teams Aircraft Inspector Relationship Specialty Start Date End Date Unknown, Notinfile PCP - General 05/17/21
--- OUTSIDE RECORDS SUMMARY | 2024-09-14 14:11 | XMS_ITS | Referral Summary ---
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
--- OUTSIDE RECORDS SUMMARY | 2024-09-14 15:00 | XMS_ITS | Encounter Summary ---
Author Organization [facility] Address [address] [place] [id number] Care Team Providers Care Two Needle Machine Operator Name Role Phone Radha Cooper NP Primary Care Provider [phone] Encounter Details Date Type Department Care Team (Late st Contact Info) Description 07/01/2024 Oriense Message Enc [facility] Family Medicine - [place] [address] [facility] [address] [place] [phone] Radha Cooper, ARINA [address] [place] [address] follow up on labs Social History Tobacco Use Types Packs/Day Years Used Date Smoking Tobacco: Never Passive Smoke Exposure: Past Smokeless Tobacco: Never Alcohol Use Standard Drinks/Week Comments Never 0 (1 standard drink = 0.6 oz pur e alcohol) PHQ-2 Answer Date Recorded Patient Health Questionnaire-2 Score 0 07/01/2024 Comments No Sex and Gender Information Value Date Recorded Sex Assigned at Female 07/01/2024 12:10 PM AUTO BODY DETAILER Legal Sex Female 8:19 AM AUTO BODY DETAILER Gender Identity Female 07/01/2024 12:10 PM AUTO BODY DETAILER Sexual Orientation Straight 07/01/2024 12 :10 PM AUTO BODY DETAILER documented as of this encounter Functional Status * Over the past 2 weeks, how often have you been bothered by any of the following problems? Question Answer Date of Assessment Author Status Little interest or pleasure in doing things Not at all 07/01/2024 12:09 PM AUTO BODY DETAILER Mari Worthington, Nurse Student Active Feeling down, depressed, or hopeless Not at all 07/01/2024 12:09 PM AUTO BODY DETAILER Seth Worthington, Nurse Student Active Patient Health Questionnaire-2 Score 0 07/01/2024 12:09 PM AUTO BODY DETAILER Kristine Worthington, Nurse Student Active documented as of this encounter Plan of Treatment Upcoming Encounters Date Type Department Care Team (Late st Contact Info) Description 10/27/2024 8:00 AM CDT Office Visit [facility] Family [facility] - [place] [address] [facility] [address] [place] [address] Radha Cooper NP [address] [place] [address] documented as of this encounter Visit Diagnoses Not on filedocumented in this encounter Additional Health Concerns Infection Onset Date Last Indicated Resolved Time COVID-19 Rule Out 07/01/2024 07/01/2024 07/01/2024 12:39 PM AUTO BODY DETAILER Assessment Noted Time PHQ-9 Depression Total Score: 7 09/30/19 24 10:34 AM CDT documented as of this encounter Care Teams Two Needle Machine Operator Relationship Specialty Start Date End Date Radha Cooper NP [address] [place] [address] PCP - General NURSE PRACTITIONER 08/02/22 documented as of this encounter
--- OUTSIDE RECORDS SUMMARY | 2024-09-14 15:00 | XMS_ITS | Encounter Summary ---
Author Organization [facility] Address [address] [place] [address] Care Team Providers Care Adjunct Philosophy Faculty Name Role Phone Radha Cooper NP Primary Care Provider [phone] Encounter Details Date Type Department Care Team (Late Contact Info) Description 02/13/2024 GFRANQt Message Enc [facility] [address] [facility] [address] [place] [address] Radha Cooper NP [address] [place] [address] Shot record Social History Tobacco Use Types Packs/Day Years Used Date Smoking Tobacco: Never Passive Smoke Exposure: Past Smokeless Tobacco: Never Alcohol Use Standard Drinks/Week Comments Never 0 (1 standard drink = 0.6 oz pur e alcohol) PHQ-2 Answer Date Recorded Patient Health Questionnaire-2 Score 2 09/30/2023 Comments No Sex and Gender Information Value Date Recorded Sex Assigned at Female 07/01/2024 12:10 PM TABLET MAKING MACHINE OPERATOR HELPER Legal Sex Female 8:19 AM TABLET MAKING MACHINE OPERATOR HELPER Gender Identity Female 07/01/2024 12:10 PM TABLET MAKING MACHINE OPERATOR HELPER Sexual Orientation Straight 07/01/2024 12 :10 PM TABLET MAKING MACHINE OPERATOR HELPER documented as of this encounter Plan of Treatment Upcoming Encounters Date Type Department Care Team (Late st Contact Info) Description 10/27/2024 8:00 AM CDT Office Visit [facility] [address] [facility] [address] [place] [address] Radha Cooper NP [address] [place] [address] documented as of this encounter Visit Diagnoses Not on filedocumented in this encounter Additional Health Concerns Infection Onset Date Last Indicated Resolved Time COVID-19 Rule Out 07/01/2024 07/01/2024 07/01/2024 12:39 PM TABLET MAKING MACHINE OPERATOR HELPER Assessment Noted Time PHQ-9 Depression Total Score: 7 09/30/19 24 10:34 AM CDT documented as of this encounter Care Teams Adjunct Philosophy Faculty Relationship Specialty Start Date End Date Radha Cooper NP [address] [place] [address] PCP - General NURSE PRACTITIONER 08/02/22 documented as of this encounter
--- OUTSIDE RECORDS SUMMARY | 2024-09-14 15:00 | XMS_ITS | Encounter Summary ---
Author Organization [facility] Address [address] [place] [address] Care Team Providers Care Wind Field Manager Name Role Phone Radha Cooper NP Primary Care Provider [phone] Encounter Details Date Type Department Care Team (Late st Contact Info) Description 12/04/2022 JamStart Message Enc [facility] [address] [facility] [address] [place] [address] Radha Cooper NP [address] [place] [address] mammogram result Social History Tobacco Use Types Packs/Day Years Used Date Smoking Tobacco: Never Smokeless Tobacco: Never Alcohol Use Standard Drinks/Week Comments Never 0 (1 standard drink = 0.6 oz pur e alcohol) PHQ-2 Answer Date Recorded Patient Health Questionnaire-2 Score 5 08/02/2022 Comments No Sex and Gender Information Value Date Recorded Sex Assigned at Female 07/01/2024 12:10 PM MODEL BUILDER Legal Sex Female 8:19 AM MODEL BUILDER Gender Identity Female 07/01/2024 12:10 PM MODEL BUILDER Sexual Orientation Straight 07/01/2024 12 :10 PM MODEL BUILDER documented as of this encounter Plan of Treatment Upcoming Encounters Date Type Department Care Team (Late st Contact Info) Description 10/27/2024 8:00 AM CDT Office Visit [facility] Family Medicine [facility] [address] [facility] [address] [place] [address] Radha Cooper NP [address] [place] [address] documented as of this encounter Visit Diagnoses Not on filedocumented in this encounter Additional Health Concerns Infection Onset Date Last Indicated Resolved Time COVID-19 Rule Out 11/12/2023 11/12/2023 11/12/2023 1:07 PM CDT COVID-19 Confirmed 11/12/2023 11/12/2023 12:32 AM CDT COVID-19 Rule Out 07/01/2024 07/01/2024 07/01/2024 12:39 PM MODEL BUILDER Assessment Noted Time PHQ-9 Depression Total Score: 13 023 11:13 AM MODEL BUILDER documented as of this encounter Care Teams Wind Field Manager Relationship Specialty Start Date End Date Radha Cooper NP [address] [place] [address] PCP - General NURSE PRACTITIONER 08/02/22 documented as of this encounter
--- OUTSIDE RECORDS SUMMARY | 2024-09-14 15:00 | XMS_ITS | Encounter Summary ---
Author Organization [facility] Address [address] [place] [address] Care Team Providers Care Lacing String Cutter Name Role Phone Radha Cooper NP Primary Care Provider [phone] Encounter Details Date Type Department Care Team (Late st Contact Info) Description 02/13/2024 [employer] Message Enc [facility] Family [facility] [address] [facility] [address] [place] [address] Radha Cooper NP [address] [place] [address] Sertraline 100mg Social History Tobacco Use Types Packs/Day Years Used Date Smoking Tobacco: Never Passive Smoke Exposure: Past Smokeless Tobacco: Never Alcohol Use Standard Drinks/Week Comments Never 0 (1 standard drink = 0.6 oz pur e alcohol) PHQ-2 Answer Date Recorded Patient Health Questionnaire-2 Score 2 09/30/2023 Comments No Sex and Gender Information Value Date Recorded Sex Assigned at Female 07/01/2024 12:10 PM RN ACUTE DIALYSIS Legal Sex Female 8:19 AM RN ACUTE DIALYSIS Gender Identity Female 07/01/2024 12:10 PM RN ACUTE DIALYSIS Sexual Orientation Straight 07/01/2024 12 :10 PM RN ACUTE DIALYSIS documented as of this encounter Plan of Treatment Upcoming Encounters Date Type Department Care Team (Late st Contact Info) Description 10/27/2024 8:00 AM CDT Office Visit [facility] [address] [facility] [address] [place] [address] Radha Cooper NP [address] [place] [address] documented as of this encounter Visit Diagnoses Not on filedocumented in this encounter Additional Health Concerns Infection Onset Date Last Indicated Resolved Time COVID-19 Rule Out 07/01/2024 07/01/2024 07/01/2024 12:39 PM RN ACUTE DIALYSIS Assessment Noted Time PHQ-9 Depression Total Score: 7 09/30/19 24 10:34 AM CDT documented as of this encounter Care Teams Lacing String Cutter Relationship Specialty Start Date End Date Radha Cooper NP [address] [place] [address] PCP - General NURSE PRACTITIONER 08/02/22 documented as of this encounter
--- OUTSIDE RECORDS SUMMARY | 2024-09-14 15:00 | XMS_ITS | Clinical Summary ---
Author Organization [facility] Address Formerly [facility] [place] [address] Care Team Providers Care Starbucks Clerk Name Role Phone Radha Cooper NP Primary Care Provider [phone] [phone] Allergies Active Allergy Reactions Criticality Noted Date Comments Sulfa Antibiotics Other (see comment) 4 Yeast infection Medications acetaminophen (TYLENOL) 500 MG tablet Take 1 tablet (500 mg total) by mouth every 6 (six) hours as needed. Active ALPRAZolam (XANAX) 0.25 MG tabletIndicatio ns:Generalized anxiety disorder with panic attacks TAKE 1 TABLET BY MOUTH AT NIGHT FOR ANXIETY OR SLEEP 7 tablet 07/13/2024 Active sertraline (ZOLOFT) 100 MG tabletIndicatio ns:Generalized anxiety disorder TAKE 1 TABLET DAILY 90 tablet 1 07/27/2024 Active Active Problems Problem Noted Date Diagnosed Date Right non-suppurative otitis media 07/13/2024 Overview (07/13/2024): Recently treated for right otitis media from an urgent care on 07/06/2024.She is still having discomfort in her right ear. She can't here our of her right ear. She states she had her school nurse look at her eardrum and she thought there was a little bit earwax and possibly blood behind her eardrum. Hematotympanum of right ear 07/13/2024 Assessment & Plan (07/13/2024 10:38 AM STATISTICS TUTOR): Will get pt referred to ENT right away for eval. If symptoms are related to a continual infection will begin cefdinir at this time until pt gets into ENT for evaluation. Generalized anxiety disorder with panic attacks 09/30/2023 Overview (07/13/2024): Doing well with sertraline 100 mg daily. She also uses alprazolam 0.25mg for breakthrough anxiety/panic attacks but very rarely uses. 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 She is considering decreasing her dose of sertraline in the near future. Assessment & Plan (07/13/2024 10:27 AM STATISTICS TUTOR): At this current time resume sertraline 100 mg daily. Will discuss decreasing her dose in the near future. She has used Alprazolam at low-dose 0.25 mg only for severe anxiety and panic attacks when they occur. She had been given 7 tablets to use only when necessary. This was last filled 8 months ago. She would like a refill today. She is taking very appropriately as directed and is only requesting 7 tablets so I am ok to fill this. [facility]. Situational mixed anxiety and depressive disorde r 09/24/2022 Resolved Problems Problem Noted Date Diagnosed Date Resolved Date Closed fracture of right distal radius 11/06/2018 09/30/2023 Overview (08/02/2022): Added automatically from request for surgery [id number] Encounters Date Type Department Care Team Description 09/14/2024 Telephone [facility] [address] [place], [place] [address] Radha Cooper NP Chest Discomfort 08/17/2024 Scan [facility] SR[facility] Scanned, [facility] 07/15/2024 Scan [facility] Scanned, [facility] 07/13/2024 10:00 AM STATISTICS TUTOR Office Visit [facility] [address] [place] [address] Radha Cooper NP Anxiety (Patient presents for 6 month follow up WANDA); Ear Problem (Seen at urgent care for right ear infection on 07/06/24, placed on Amoxicillin, still having fullness in her ear) 07/13/2024 Travel 07/06/2024 Scan [email or web address] INFO SRVCS Scanned, [facility] 07/01/2024 12:20 PM STATISTICS TUTOR Office Visit [address] [place] [address] Radha Cooper NP Cough (Patient presents with a sore throat, fever, headache, cough, chills and SOB X 06/28/24) 07/01/2024 MyChart Message Enc [facility] [address] [facility] [address] [place] [address] Radha Cooper NP follow up on labs 07/01/2024 Travel from Last 3 Months Immunizations Immunization Administration Dates Next Due Hepatitis A (Havrix [address]) 10/01/2018 Hepatitis B Pediatric 08/22/1998,07/20/1998 Influenza (Generic) 02/01/2024 Influenza Adult (Generic) 03/04/2023,04/05/2022, 04/22/2021 MODERNA COVID-19 (SMOOTH PLATER LEONILA AMANDA), MRNA, LNP-S, PF, 50 MCG/ 0.25 ML DOSE 04/22/2021 Shingrix 12/03/2022,09/25/2022 Typhoid Vi Polysaccharide Va cc 25 Mcg/0.5Ml Im Soln 10/01/2018 Yellow Fever (YF- Vax) 10/01/2018 Family History Medical History Relation Comments Heart Disease Father Hypertension Father Arthritis Maternal Grandmother Diabetes Maternal Grandmother Vision loss Maternal Grandmother Age related macular degeneration Diabetes Mother Relation Status Comments Father Maternal Grandmother Mother Social History Tobacco Use Types Packs/Day Years Used Date Smoking Tobacco: Never Passive Smoke Exposure: Past Smokeless Tobacco: Never Tobacco Cessation:Counseling Given: No Alcohol Use Standard Drinks/Week Comments Never 0 (1 standard drink = 0.6 oz pur e alcohol) PHQ-2 Answer Date Recorded Patient Health Questionnaire-2 Score 0 07/13/2024 Comments No Sex and Gender Information Value Date Recorded Sex Assigned at Female 07/01/2024 12:10 PM STATISTICS TUTOR Legal Sex Female 8:19 AM STATISTICS TUTOR Gender Identity Female 07/01/2024 12:10 PM STATISTICS TUTOR Sexual Orientation Straight 07/01/2024 12 :10 PM STATISTICS TUTOR Last Filed Vital Signs Vital Sign Reading Time Taken Comments Blood Pressure 92/64 07/13/2024 9:53 AM STATISTICS TUTOR Pulse 72 07/13/2024 9:53 AM STATISTICS TUTOR Temperature 36.4 C (97.6 F) 07/13/2024 9:53 AM STATISTICS TUTOR Respiratory Rate 16 07/13/2024 9:53 AM STATISTICS TUTOR Oxygen Saturation 98% 07/13/2024 9:53 AM STATISTICS TUTOR Inhaled Oxygen Concentration - - Weight 73.9 kg (163 lb) 07/13/2024 9:53 AM STATISTICS TUTOR Height 167.6 cm (5' 6 ) 07/13/2024 9:53 AM STATISTICS TUTOR Body Mass Index 26.31 07/13/2024 9:53 AM STATISTICS TUTOR Plan of Treatment Upcoming Encounters Date Type Department Care Team (Late st Contact Info) Description 10/27/2024 8:00 AM CDT Office Visit [facility] Family Medicine - [place] [address] [address] Radha Cooper NP [address] [place] [address] Health Maintenance Due Date Last Done Comments Cervical Cancer Screening Pap Smear (Age 30 to 64) Every 3 Years 1967 DTaP, Tdap and Td Vaccines (1 - Tdap) 12/28/1986 Hepatitis B Vaccines (1 of 3 - 19+ 3-dose series) 12/28/1986 08/22/1998, 07/20/1998 Cervical Cancer Screening Pap with HPV Testing (Age 30 to 64) Every 5 Years 12/28/1997 Cervical Cancer Screening with HPV 12/28/1997 Pneumococcal Vaccine: 50+ Years (1 of 1 - PCV) 12/28/2017 Annual Physical 09/29/2024 09/30/2023, 09/24/2022 Mammogram Screening 12/01/2024 12/01/2022 Colorectal Cancer Screening FIT-DNA (3 Years) 10/09/2025 10/09/2022, 10/09/2022 Hepatitis C Completed 09/06/2022 Zoster Vaccines Completed 12/03/2022, 09/25/2022 COVID-19 Vaccine Completed 02/01/2024, 01/2023, 04/05/2022, Additional history exists PHQ-2 (Physician [employer]) Completed 07/13/2024 Meningococcal B Vaccine Aged Out No l onger eligible based on patient's age to complete this topic Meningococcal Vaccine Aged Out No fatmata jahaira eligible based on patient's age to complete this topic RSV Immunizations Under 20 Months Aged Out No longer eligible based on patient's age to complete this topic Procedures Procedure Name Priority Date/Time Associated Diagnosis Comments CORONAVIRUS (COVID-19) INFLUENZA A & B ANTIGEN IA PANEL Routine 07/01/2024 12:38 PM STATISTICS TUTOR Acute cough STREP A RAPID Routine 07/01/2024 12:28 PM STATISTICS TUTOR Sore throat MAMMOGRAM GENERIC (SCAN ORDER) 12/01/2022 COLOGUARD (EXACT SCIENCE) Routine 10/09/2022 7:40 PM CDT Screen for colon cancer HEPATITIS C ANTIBODY Routine 09/06/2022 8:45 AM CDT Need for hepatitis C screening test from Last 3 Months or Most Recently Relevant to Health Maintenance Results * (ABNORMAL) CORONAVIRUS (COVID-19) INFLUENZA A & B ANTIGEN IA PANEL (07/01/2024 12:38 PM STATISTICS TUTOR) CORONAVIRUS ANTIGEN IA NEGATIVE NEGATIVE [address] [place] INFLUENZA A POSITIVE NEGATIVE [address] [place] INFLUENZA B NEGATIVE NEGATIVE [address] [place] Internal Control: VALID VALID [address] [place] NASAL STRUCTURE / Unknown 07/01/2024 12:38 PM STATISTICS TUTOR us Radha Cooper NP MICROBIOLOGY - GENERAL OR DERABLES Final Result [address] [place] [address] [facility] [address] [place] [address], [place] [phone] * STREP A RAPID (07/01/2024 12:28 PM STATISTICS TUTOR) RAPID STREP TEST NEGATIVE NEGATIVE [address] [place] Internal Control: VALID VALID [address] [place] STRUCTURE OF ANTERIOR PORTION OF NECK / Unknown 07/01/2024 12:28 PM STATISTICS TUTOR Radha Cooper NP MICROBIOLOGY - GENERAL OR DERABLES Final Result [address] [place] [address] [place] [address], * MAMMOGRAM GENERIC (12/01/2022) Anatomical Region Laterality Modality Other 12/01/2022 [facility] Scanned SCANNING Final Resu lt * COLOGUARD (EXACT SCIENCE) (10/09/2022 7:40 PM CDT) COLOGUARD RESULT Negative Negative [facility] (CLIA #:[id number]) Comment: NEGATIVE TEST RESULT. A negative Cologuard result indicates a low likelihood that a colorectal cancer (CRC) or advanced adenoma (adenomatous polyps with more advanced pre-malignant features) is present. The chance that a person with a negative Cologuard test has a colorectal cancer is less than 1 in 1500 (negative predictive value >99.9%) or has an advanced adenoma is less than 5.3% (negative predictive value 94.7%). These data are based on a prospective cross-sectional study of 10,000 individuals at average risk for colorectal cancer who were screened with both Cologuard and colonoscopy. (Hernán Mcintosh al, N Engl J Med 2014;370(14):3723-2034) The normal value (reference range) for this assay is negative. COLOGUARD RE-SCREENING RECOMMENDATION: Periodic colorectal cancer screening is an important part of preventive healthcare for asymptomatic individuals at average risk for colorectal cancer. Following a negative Cologuard result, the [place] Cancer Society and U.S. Multi-Society Task Force screening guidelines recommend a Cologuard re-screening interval of 3 years. References: [place] Cancer Society Guideline for Colorectal Cancer Screening: https://www.cancer.org/cancer/coryh-rnvcat-pfbllp/ohjvfqhvm-fgpglhwkk-zlgaocm/ac s-rec ommendations.html.; Ryley DK, Zuleyka CR, Bipin WalshK, Colorectal Cancer Screening: Recommendations for Physicians and Patients from the U.S. Multi-Society Task Force on Colorectal Cancer Screening , Am J Gastroenterology 2017; 112:2400-7388. TEST DESCRIPTION: Composite algorithmic analysis of stool DNA-biomarkers with hemoglobin immunoassay. Quantitative values of individual biomarkers are not reportable and are not associated with individual biomarker result reference ranges. Cologuard is intended for colorectal cancer screening of adults of either sex, 45 years or older, who are at average-risk for colorectal cancer (CRC). Cologuard has been approved for use by the U.S. FDA. The performance of Cologuard was established in a cross sectional study of average-risk adults aged 50-84. Cologuard performance in patients ages 45 to 49 years was estimated by sub-group analysis of near-age groups. Colonoscopies performed for a positive result may find as the most clinically significant lesion: colorectal cancer [4.0%], advanced adenoma (including sessile serrated polyps greater than or equal to 1cm diameter) [20%] or non- advanced adenoma [31%]; or no colorectal neoplasia [45%]. These estimates are derived from a prospective cross-sectional screening study of 10,000 individuals at average risk for colorectal cancer who were screened with both Cologuard and colonoscopy. (Hernán Mcintosh al, N Engl J Med 2014;370(14):4137-8212.) Cologuard may produce a false negative or false positive result (no colorectal cancer or precancerous polyp present at colonoscopy follow up). A negative Cologuard test result does not guarantee the absence of CRC or advanced adenoma (pre-cancer). The current Cologuard screening interval is every 3 years. ([place] Cancer Society and U.S. Multi-Society Task Force). Cologuard performance data in a 10,000 patient pivotal study using colonoscopy as the reference method can be accessed at the following location: www.Vericept/results. Additional description of the Cologuard test process, warnings and precautions can be found at www.colOverhead.fmrd.com. STOOL STOOL SPECIMEN / Unknown 10/09/2022 7:40 PM CDT 10/11/2022 7:49 PM CDT Radha Cooper ETHERNET NETWORK ARCHITECT BODY FLUIDS AND STOOLS OR DERABLES Final Result Performing Organization Address [facility] Co de Phone Number Definition 6 ([facility] [address] [facility]) [address] [place] [address], [facility] (CLIA #:[id number]) [address] [place] [address] * HEPATITIS C ANTIBODY (09/06/2022 8:45 AM CDT) HEPATITIS C AB NON-REACTI VE NON-REACT DEANDRE 09/06/2022 6:09 PM CDT [facility] Comment: ANTIBODIES TO HCV NOT DETECTED. DOES NOT EXCLUDE THE POSSIBILITY OF EXPOSURE TO HCV. 09/06/2022 8:45 AM CDT Radha Cooper ETHERNET NETWORK ARCHITECT LABORATORY Final Res ult Performing Organization Address [facility] de Phone Number [facility] [address] [place] [address], [id number] from Last 3 Months or Most Recently Relevant to Health Maintenance Insurance [facility] Care Teams Starbucks Clerk Relationship Specialty Start Date End Date Radha Cooper NP [address] [place] [address] PCP - General NURSE PRACTITIONER 08/02/22
--- OUTSIDE RECORDS SUMMARY | 2024-09-14 15:00 | XMS_ITS | Encounter Summary ---
Author Organization [facility] Address [address] [place] [address] Care Team Providers Care Production Zone Leader Name Role Phone Radha Cooper NP Primary Care Provider [phone] [phone] Encounter Details Date Type Department Care Team (Late Contact Info) Description 09/06/2022 BiOWiSHt Message Enc [facility] [address] [facility] [address] [place] [id number] Radha Cooper, ARINA [address] [place], [place] [address] Blood work Social History Tobacco Use Types Packs/Day Years Used Date Smoking Tobacco: Never Smokeless Tobacco: Never Alcohol Use Standard Drinks/Week Comments Never 0 (1 standard drink = 0.6 oz pur e alcohol) PHQ-2 Answer Date Recorded Patient Health Questionnaire-2 Score 5 08/02/2022 Comments No Sex and Gender Information Value Date Recorded Sex Assigned at Female 07/01/2024 12:10 PM STAGECRAFT TEACHER Legal Sex Female 8:19 AM STAGECRAFT TEACHER Gender Identity Female 07/01/2024 12:10 PM STAGECRAFT TEACHER Sexual Orientation Straight 07/01/2024 12 :10 PM STAGECRAFT TEACHER COVID-19 Exposure Response Date Recorded In the last 10 days, have yo u been in contact with someone who was confirmed or suspected to have Coronavirus/COVID-19? No / Unsure 09/06/2022 8:22 AM CDT documented as of this encounter Plan of Treatment Upcoming Encounters Date Type Department Care Team (Late Contact Info) Description 10/27/2024 8:00 AM CDT Office Visit [facility] [address] [facility] [address] [place] [address] Radha Cooper NP [address] [place] [address] documented as of this encounter Visit Diagnoses Not on filedocumented in this encounter Additional Health Concerns Infection Onset Date Last Indicated Resolved Time COVID-19 Rule Out 11/12/2023 11/12/2023 11/12/2023 1:07 PM CDT COVID-19 Confirmed 11/12/2023 11/12/2023 12:32 AM CDT COVID-19 Rule Out 07/01/2024 07/01/2024 07/01/2024 12:39 PM STAGECRAFT TEACHER Assessment Noted Time PHQ-9 Depression Total Score: 13 023 11:13 AM STAGECRAFT TEACHER documented as of this encounter Care Teams Production Zone Leader Relationship Specialty Start Date End Date Radha Cooper NP [address] [place] [address] PCP - General NURSE PRACTITIONER 08/02/22 documented as of this encounter
--- OUTSIDE RECORDS SUMMARY | 2024-09-14 15:01 | XMS_ITS | Encounter Summary ---
Author Organization [facility] Address [address] [place] [address] Care Team Providers Care Quality Analyst/Technical Writer Name Role Phone Radha Cooper NP Primary Care Provider [phone] [phone] Encounter Details Date Type Department Care Team (Late st Contact Info) Description 01/16/2024 MyCSecrettet Message Enc [facility] [address] [facility] [address] [place] [address] Radha Cooper NP [address] [place] [address] Increase dosage of medication Social History Tobacco Use Types Packs/Day Years Used Date Smoking Tobacco: Never Passive Smoke Exposure: Past Smokeless Tobacco: Never Alcohol Use Standard Drinks/Week Comments Never 0 (1 standard drink = 0.6 oz pur e alcohol) PHQ-2 Answer Date Recorded Patient Health Questionnaire-2 Score 2 09/30/2023 Comments No Sex and Gender Information Value Date Recorded Sex Assigned at Female 07/01/2024 12:10 PM REPLENISHMENT SPECIALIST Legal Sex Female 8:19 AM REPLENISHMENT SPECIALIST Gender Identity Female 07/01/2024 12:10 PM REPLENISHMENT SPECIALIST Sexual Orientation Straight 07/01/2024 12 :10 PM REPLENISHMENT SPECIALIST documented as of this encounter Plan of Treatment Upcoming Encounters Date Type Department Care Team (Late st Contact Info) Description 10/27/2024 8:00 AM CDT Office Visit [facility] [address] [facility] [address] [place] [address] Radha Cooper NP [address] [place] [address] documented as of this encounter Visit Diagnoses Not on filedocumented in this encounter Additional Health Concerns Infection Onset Date Last Indicated Resolved Time COVID-19 Rule Out 07/01/2024 07/01/2024 07/01/2024 12:39 PM REPLENISHMENT SPECIALIST Assessment Noted Time PHQ-9 Depression Total Score: 7 09/30/19 24 10:34 AM CDT documented as of this encounter Care Teams Quality Analyst/Technical Writer Relationship Specialty Start Date End Date Radha Cooper NP [address] [place] [address] PCP - General NURSE PRACTITIONER 08/02/22 documented as of this encounter
--- OUTSIDE RECORDS SUMMARY | 2024-09-14 15:01 | XMS_ITS | Referral Summary ---
Author Organization [facility] [address] Address [address] [place] [phone] Care Team Providers Care Commanding Officer Traffic Division Name Role Phone Unknown, Notinfile Primary Care Provider Unavail able Allergies No known active allergies Medications acetaminophen (TYLENOL) 500 mg tablet Take 500 mg by mouth every 6 (six) hours as needed for pain Active Active Problems Problem Noted Date Diagnosed Date Closed fracture of right distal radius 9 Overview (11/06/2018): Added automatically from request for surgery [id number] Social History Tobacco Use Types Packs/Day Years [...] on file Legal Sex Female 7:30 PM DIRECTOR OF ROOMS Gender Identity Not on file Sexual Orientation [...] Treatment Not on file Insurance Care Teams Commanding Officer Traffic Division Relationship Specialty Start Date End Date Unknown, Notinfile PCP - General 05/17/21
--- OUTSIDE RECORDS SUMMARY | 2024-09-14 15:01 | XMS_ITS | Encounter Summary ---
Author Organization [facility] Address [address] [place] [address] Care Team Providers Care Transplant Case Manager Name Role Phone Radha Cooper NP Primary Care Provider [phone] [phone] Reason for Visit * Reason Onset Date Comments Chest Discomfort 09/14/2024 Encounter Details Date Type Department Care Team (Late st Contact Info) Description 09/14/2024 Telephone [facility] Family Medicine - [place] [address] [phone] Radha Cooper NP [address] [place] [address] Chest Discomfort Social History Tobacco Use Types Packs/Day Years Used Date Smoking Tobacco: Never Passive Smoke Exposure: Past Smokeless Tobacco: Never Alcohol Use Standard Drinks/Week Comments Never 0 (1 standard drink = 0.6 oz pur e alcohol) PHQ-2 Answer Date Recorded Patient Health Questionnaire-2 Score 0 07/13/2024 Comments No Sex and Gender Information Value Date Recorded Sex Assigned at Female 07/01/2024 12:10 PM MARKETING PROFESSIONAL Legal Sex Female 8:19 AM MARKETING PROFESSIONAL Gender Identity Female 07/01/2024 12:10 PM MARKETING PROFESSIONAL Sexual Orientation Straight 07/01/2024 12 :10 PM MARKETING PROFESSIONAL documented as of this encounter Progress Notes * Qing Lopez MA - 09/14/2024 12:19 PM CDT Patient called in requesting to be seen by Radha. She stated she is having left sided chest discomfort and heaviness. No pain She does get a little winded with activity.He dad dies at age 55 due to heart attack. I advise the patient to go to the ER to be evaluated. She voiced understanding and will go over to [facility] now. documented in this encounter Plan of Treatment Upcoming Encounters Date Type Department Care Team (Late st Contact Info) Description 10/27/2024 8:00 AM CDT Office Visit [facility] Family Medicine - [place] [address] [facility] [address] [place] [address] Radha Cooper NP [address] [place] [address] documented as of this encounter Visit Diagnoses Not on filedocumented in this encounter Additional Health Concerns Assessment Noted Time PHQ-9 Depression Total Score: 4 07/13/19 25 9:57 AM MARKETING PROFESSIONAL documented as of this encounter Care Teams Transplant Case Manager Relationship Specialty Start Date End Date Radha Cooper NP [address] [place] [address] PCP - General NURSE PRACTITIONER 08/02/22 documented as of this encounter
--- OUTSIDE RECORDS SUMMARY | 2024-09-14 15:01 | XMS_ITS | Clinical Summary ---
Author Organization [facility] [address] Address [address] [place] [phone] Care Team Providers Care Roll Capper Name Role Phone Unknown, Notinfile Primary Care Provider Unavail able Allergies No known active allergies Medications acetaminophen (TYLENOL) 500 mg tablet Take 500 mg by mouth every 6 (six) hours as needed for pain Active Active Problems Problem Noted Date Diagnosed Date Closed fracture of right distal radius 9 Overview (11/06/2018): Added automatically from request for surgery [id number] Surgical History Surgery Date Site/Laterality Comments ANKLE [...] on file Legal Sex Female 7:30 PM GREASE CUP FILLER Gender Identity Not on file Sexual Orientation [...] Plan of Treatment Not on file Insurance [facility] H[facility]PPO Address: [place] [address] Care Teams Roll Capper Relationship Specialty Start Date End Date Unknown, Notinfile PCP - General 05/17/21
--- OUTSIDE RECORDS SUMMARY | 2024-09-14 15:01 | XMS_ITS | Encounter Summary ---
Author Organization [facility] Address [address] [place] [id number] Care Team Providers Care Vibrator Equipment Tester Name Role Phone Radha Cooper NP Primary Care Provider [phone] Encounter Details Date Type Department Care Team (Late Contact Info) Description 09/11/2022 EZBOBt Message Enc [facility] [address] [place] [address] [phone] Radha Cooper, ARINA [address] [place] [phone] Test results Social History Tobacco Use Types Packs/Day Years Used Date Smoking Tobacco: Never Smokeless Tobacco: Never Alcohol Use Standard Drinks/Week Comments Never 0 (1 standard drink = 0.6 oz pur e alcohol) PHQ-2 Answer Date Recorded Patient Health Questionnaire-2 Score 5 08/02/2022 Comments No Sex and Gender Information Value Date Recorded Sex Assigned at Female 07/01/2024 12:10 PM SERVER CASHIER Legal Sex Female 8:19 AM SERVER CASHIER Gender Identity Female 07/01/2024 12:10 PM SERVER CASHIER Sexual Orientation Straight 07/01/2024 12 :10 PM SERVER CASHIER COVID-19 Exposure Response Date Recorded In the last 10 days, have yo u been in contact with someone who was confirmed or suspected to have Coronavirus/COVID-19? No / Unsure 09/10/2022 9:40 AM CDT documented as of this encounter Plan of Treatment Upcoming Encounters Date Type Department Care Team (Late Contact Info) Description 10/27/2024 8:00 AM CDT Office Visit [facility] [address] [place] [address] Radha Cooper NP [address] [place] [address] documented as of this encounter Visit Diagnoses Not on filedocumented in this encounter Additional Health Concerns Infection Onset Date Last Indicated Resolved Time COVID-19 Rule Out 11/12/2023 11/12/2023 11/12/2023 1:07 PM CDT COVID-19 Confirmed 11/12/2023 11/12/2023 12:32 AM CDT COVID-19 Rule Out 07/01/2024 07/01/2024 07/01/2024 12:39 PM SERVER CASHIER Assessment Noted Time PHQ-9 Depression Total Score: 13 023 11:13 AM SERVER CASHIER documented as of this encounter Care Teams Vibrator Equipment Tester Relationship Specialty Start Date End Date Radha Cooper NP [address] [place] [address] PCP - General NURSE PRACTITIONER 08/02/22 documented as of this encounter
[2024-09-14 16:10] VITALS: BP 113/83; PULSE 79; RESP 15; O2SAT 95
[2024-09-14 16:52] LABS: Troponin I < 0.012 ng/mL (0.000-0.034)
== END 2024-09-14 17:24 | disposition home or self-care (01) ==
PROVIDERS: Registered Nurse; Emergency Provider General Practice; PCP Nurse Practitioner
DX: R07.89 Other chest pain (principal); N32.81 Overactive bladder; Z90.721 Acquired absence of ovaries, unilateral
CPT/HCPCS: 36415; 71046; 71275; 80053; 83690; 84443; 84484; 85025; 85380; 85610; 85730; 93005; 99284; Q9967

== ENCOUNTER 2024-11-17 07:44 | Outpatient (CLI) | payer OTHER, SELFPAY ==
--- NOTE | ~2024-11-17 | MM_ITS ---
EXAMINATION: MM screening jesi BI w rosario HISTORY: Screening mammogram TECHNIQUE: Craniocaudal and mediolateral oblique 3-D tomosynthesis images were obtained and synthetic 2-D images were generated. CAD analysis was submitted and interpreted. COMPARISON: 12/01/2022, 12/05/2018 BREAST PARENCHYMAL COMPOSITION:Not Dense. There are scattered areas of fibroglandular density. FINDINGS: No suspicious mass, calcification, or architectural distortion are identified in either flavia ast to suggest malignancy. There has been no suspicious interval change. IMPRESSION: No mammographic evidence of malignancy. Recommend routine screening mammography in one year. BI-RADS Category 1: Negative Reviewed, dictated and finalized at location .
== END 2024-11-17 07:45 | disposition home or self-care (01) ==
LOC: CHSIMG 07:45
PROVIDERS: PCP Nurse Practitioner; Visit Provider Nurse Practitioner
DX: Z12.31 Encounter for screening mammogram for malignant neoplasm of breast (principal)
CPT/HCPCS: 77063; 77067